=== PATIENT | female | born 2000 | race Two or more races ===

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

== ENCOUNTER 2021-03-15 21:31 | Emergency (ER) | payer OTHER ==
[~2021-03-15] VITALS: Ht 167.6 cm; Wt 109.1 kg
[2021-03-15] MEDS ORDERED: IV NORMAL SALINE 1000ML BAG 1,000 ML IV ONE (22:00)
[2021-03-15] MEDS ORDERED: PROCHLORPERAZINE 10 MG/2 ML VIAL. IV ONE (22:00)
[2021-03-15] MEDS ORDERED: diphenhydrAMINE 50 MG/ML VIAL IVP ONE (22:00)
[2021-03-15] MEDS ORDERED: DEXAMETHASONE SOD PHOS 20 MG/5 ML VIAL. IV ONE (22:00)
[2021-03-15 22:11] LABS: BILIRUBIN,URINE NEGATIVE (NEG); COLOR,URINE YELLOW; NITRITE,URINE NEGATIVE (NEG); PH,URINE 7.5 (<5.0-8.0); PROTEIN,URINE NEGATIVE (NEG-TRACE)
[2021-03-15 22:16] LABS: CLARITY,URINE CLOUDY
[2021-03-15 22:17] LABS: AMORPHOUS SEDIMENT,UR PRESENT /HPF; BACTERIA,URINE FEW /HPF (0-FEW); RBC,URINE 0 /HPF (0-2)
[2021-03-15 22:18] LABS: WBC,URINE RARE /HPF (0-4)
[2021-03-15] MEDS ORDERED: BUTA1TAB23 PO (23:05)
--- NOTE | 2021-03-15 23:06 | ED.ADGEN ---
Past Medical History Past Medical History: No Pertinent History Additional Past Medical Histor: seasonal allergies Past Surgical History: Appendectomy Smoking Status: Never Smoker Alcohol Use: Occasionally Drug Use: None General Adult EDM: Chief Complaint: MULTIPLE COMPLAINTS HPI: HPI: Patient is a 20 year old female who presents emergency department with complaints of a headache since yesterday. Patient states she has been taking Tylenol and ibuprofen with little relief of her symptoms. She states that she feels lightheaded, nauseated, and that light hurts her eyes ever since the headache. She denies any vertigo, difficulty with coordination, weakness, fever, body aches, vomiting, diarrhea, chest pain, palpitations, shortness of breath, abdominal pain, or fatigue. She currently rates pain a 7 out of 10 on the pain scale, she denies any alleviating factors. Patient denies any recent head injury. Review of Systems: Review of Systems: Complete ROS is negative unless otherwise noted in HPI. Current Medications: Current Medications Medications (Trade) Dose Ordered Sig/Wei Start Time Stop Time Status Last Admin Dose Admin Dexamethasone Sodium Phosphate (Decadron) 10 mg 1X ONCE 03/15/21 22:00 03/15/21 22:01 DC 03/15/21 22:22 10 MG Diphenhydramine HCl (Benadryl) 25 mg 1X ONCE 03/15/21 22:00 03/15/21 22:01 DC 03/15/21 22:22 25 MG Prochlorperazine Edisylate (Compazine) 10 mg 1X ONCE 03/15/21 22:00 03/15/21 22:01 DC 03/15/21 22:22 10 MG Sodium Chloride 1,000 ml @ 1,000 mls/hr 1X ONCE 03/15/21 22:00 03/15/21 22:59 DC 03/15/21 22:22 1,000 MLS/HR Allergies: Allergies: Allergies Coded Allergies Type Severity Reaction Last Updated Verified No Known Drug Allergies 06/15/17 No Physical Exam: PE: See Above Constitutional: Well developed, well nourished, no acute distress, non-toxic appearance, obese. [] HENT: Normocephalic, atraumatic, bilateral external ears normal, nose normal. [] Eyes: PERRLA, EOMI, conjunctiva normal, no discharge, no nystagmus. [] Neck: Normal range of motion, no stridor. [] Cardiovascular:Heart rate regular rhythm Lungs & Thorax: Respirations even and unlabored, no retractions, no respiratory distress Skin: Warm, dry, no erythema, no rash. [] Extremities: No cyanosis, ROM intact, no edema. [] Neurologic: Alert and oriented X 3, normal motor, normal sensory, no focal deficits noted. [] Psychologic: Affect normal, judgement normal, mood normal. [] Current Patient Data: Labs: Laboratory Tests Test 03/15/21 21:55 03/15/21 22:06 Urine Collection Type Unknown Urine Color Yellow Urine Clarity Cloudy Urine pH 7.5 (<5.0-8.0) Urine Specific [place] 1.025 (1.000-1.030) Urine Protein Negative mg/dL (NEG-TRACE) Urine Glucose (UA) Negative mg/dL (NEG) Urine Ketones (Stick) Negative mg/dL (NEG) Urine Blood Negative (NEG) Urine Nitrite Negative (NEG) Urine Bilirubin Negative (NEG) Urine Urobilinogen Dipstick 1.0 mg/dL (0.2 mg/dL) Urine Leukocyte Esterase Negative (NEG) Urine RBC 0 /HPF (0-2) Urine WBC Rare /HPF (0-4) Urine Squamous Epithelial Cells Mod /LPF Urine Amorphous Sediment Present /HPF Urine Bacteria Few /HPF (0-FEW) POC Urine HCG, Qualitative Hcg negative (Negative) Vital Signs: Vital Signs Date Time Temp Pulse Resp B/P (MAP) Pulse Ox O2 Delivery O2 Flow Rate FiO2 03/15/21 21:37 98.3 87 18 133/61 (85) 99 Room Air 98.3 EKG: EKG: [] Heart Score: C/O Chest Pain: No Risk Scores: Score 0 - 3: 2.5% MACE over next 6 weeks - Discharge Home Score 4 - 6: 20.3% MACE over next 6 weeks - Admit for Clinical Observation Score 7 - 10: 72.7% MACE over next 6 weeks - Early Invasive Strategies Radiology/Procedures: Radiology/Procedures: [] Course & Med Decision Making: Course & Med Decision Making Pertinent Labs and Imaging studies reviewed. (See chart for details) 20-year-old female presents emergency department with complaints of a headache for 2 days. Urine is negative, UA is unremarkable. Patient was given a liter normal saline, 10 mg of Compazine, 25 mg of Benadryl, and 10 mg Decadron. She reported that her pain was down to a 1 or 2 out of 10 on the pain scale following medications. Patient states she felt much better. Prescription written for Fioricet. Patient encouraged to follow-up with primary care doctor in the next 1 to 2 days, return to the ER if symptoms worsen or fever develops. Patient verbalized an understanding of home care, medications, follow-up, and return to ED instructions and was in agreement with the plan of care. [] Dragon Disclaimer: Dragon Disclaimer: This electronic medical record was generated, in whole or in part, using a voice recognition dictation system. Departure Departure Impression: Primary Impression: Headache around the eyes Disposition: 01 HOME / SELF CARE / HOMELESS Condition: IMPROVED Referrals: BONNY BROWN MD (PCP) Patient Instructions: General Headache Without Cause, [id number] Additional Instructions: Fill the prescription and take it as directed. Go home and rest in a cool, dark, quiet room. Limit screen exposure. Follow-up with your primary care doct or in the next 1 to 2 days, return to the ER if symptoms worsen or fever develops. Scripts Butalb/Acetaminophen/Caffeine ([id number] [id number]) 1 Each Tablet 1-2 EACH PO Q4HRS PRN for PAIN MDD 6 tabs for 3 Days, #18 TAB 0 Refills Prov: HERMAN ALBARRAN APRN 03/15/21 HERMAN ALBARRAN APRN March 15, 2021 23:06
[2021-03-15 23:17] VITALS: BP 128/75
== END 2021-03-15 23:18 | disposition home or self-care (01) ==
LOC: ER 21:31
DX: R51.9 Headache, unspecified (principal); R42 Dizziness and giddiness; R11.0 Nausea; Z90.89 Acquired absence of other organs
CPT/HCPCS: 81001; 81025; 96361; 96374; 96375; 99285; J0780; J1100; J1200; J7030

== ENCOUNTER 2021-03-17 12:12 | Emergency (ER) | payer OTHER ==
[~2021-03-17] VITALS: Ht 172.7 cm; Wt 100.0 kg
[~2021-03-17 12:12] MED LIST changes: +BUTA1TAB23 PO
--- NOTE | 2021-03-17 12:25 | ED.ADGEN ---
Past Medical History Past Medical History: No Pertinent History Additional Past Medical Histor: seasonal allergies Past Surgical History: Appendectomy Smoking Status: Never Smoker Alcohol Use: Occasionally Drug Use: None General Adult EDM: Chief Complaint: HEADACHE HPI: HPI: Patient is a 20-year-old female who arrives with her mother to the emergency department complaining of headache that is now his third day. Patient was evaluated in the emergency department here 2 days previously and provided medication in the ER as well as a prescription. Despite this the patient has had continued pain. Patient describes her pain is in the front of the head and migrates to the top of her head. Patient also describes being sensitive to light and nauseated as well. Patient is perplexed by this because she does not have a history of headaches. She further denies any history of illness such as fever and does not have any history of a traumatic injury. She further denies any neurological changes otherwise. She is awake, alert and uncomfortable appearing. Review of Systems: Review of Systems: Constitutional: Denies fever or chills. [] Eyes: Reports light sensitivity. Denies change in visual acuity. [] HENT: Denies nasal congestion or sore throat. [] Respiratory: Denies cough or shortness of breath. [] Cardiovascular: Denies chest pain or edema. [] GI: Reports nausea. Denies abdominal pain, vomiting, bloody stools or diarrhea. [] : Denies dysuria. [] Musculoskeletal: Denies back pain or joint pain. [] Integument: Denies rash. [] Neurologic: Reports headache. Denies focal weakness or sensory changes. [] Endocrine: Denies polyuria or polydipsia. [] Lymphatic: Denies swollen glands. [] Psychiatric: Denies depression or anxiety. [] Current Medications: Current Medications Medications (Trade) Dose Ordered Sig/Wei Start Time Stop Time Status Last Admin Dose Admin Diphenhydramine HCl (Benadryl) 50 mg 1X ONCE 03/17/21 12:30 03/17/21 12:36 DC 03/17/21 13:01 50 MG Ketorolac Tromethamine (Toradol 30mg Vial) 30 mg 1X ONCE 03/17/21 12:30 03/17/21 12:36 DC 03/17/21 13:01 30 MG Lorazepam (Ativan Inj) 1 mg 1X ONCE 03/17/21 12:30 03/17/21 12:36 DC 03/17/21 13:01 1 MG Metoclopramide HCl (Reglan Vial) 10 mg 1X ONCE 03/17/21 12:30 03/17/21 12:36 DC 03/17/21 13:00 10 MG Sodium Chloride 1,000 ml @ 1,000 mls/hr 1X ONCE 03/17/21 12:30 03/17/21 13:29 DC 03/17/21 13:02 1,000 MLS/HR Allergies: Allergies: Allergies Coded Allergies Type Severity Reaction Last Updated Verified No Known Drug Allergies 06/15/17 No Physical Exam: PE: Constitutional: Uncomfortable appearing. Well developed, well nourished, non- toxic appearance. [] HENT: Normocephalic, atraumatic, bilateral external ears normal, oropharynx moist, no oral exudates, nose normal. [] Eyes: PERRLA, EOMI, conjunctiva normal, no discharge. [] Neck: Normal range of motion, no tenderness, supple, no stridor. [] Cardiovascular:Heart rate regular rhythm, no murmur [] Lungs & Thorax: Bilateral breath sounds clear to auscultation [] Abdomen: Bowel sounds normal, soft, no tenderness, no masses, no pulsatile masses. [] Skin: Warm, dry, no erythema, no rash. [] Back: No tenderness, no CVA tenderness. [] Extremities: No tenderness, no cyanosis, no clubbing, ROM intact, no edema. [] Neurologic: Alert and oriented X 3, normal motor function, normal sensory function, no focal deficits noted. [] Psychologic: Affect normal, judgement normal, mood normal. [] Current Patient Data: Vital Signs: Vital Signs Date Time Temp Pulse Resp B/P (MAP) Pulse Ox O2 Delivery O2 Flow Rate FiO2 03/17/21 12:30 98.6 91 20 153/78 (103) 98 Room Air 98.6 EKG: EKG: [] Heart Score: C/O Chest Pain: No Risk Factors: Risk Factors: DM, Current or recent (<one month) smoker, HTN, HLP, family history of CAD, obesity. Risk Scores: Score 0 - 3: 2.5% MACE over next 6 weeks - Discharge Home Score 4 - 6: 20.3% MACE over next 6 weeks - Admit for Clinical Observation Score 7 - 10: 72.7% MACE over next 6 weeks - Early Invasive Strategies Radiology/Procedures: Radiology/Procedures: [] Impression: [facility] [address] [place] [address] IMAGING REPORT Signed PATIENT: DAVID MCCOLLUM ACCOUNT: [id number] : 2000 LOCATION: ER AGE: 20 SEX: F EXAM STATUS: REG ER ORD. PHYSICIAN: LOGAN CR DO REASON: HEADACHE PROCEDURE: CT HEAD WO CONTRAST INDICATION: Reason: HEADACHE / Spl. Instructions: / History: COMPARISON: None. TECHNIQUE: Axial CT images obtained through the head without intravenous contrast. One or more of the following individualized dose reduction techniques were utilized for this examination: 1. Automated exposure control; 2. Adjustment of the mA and/or kV according to patient size; 3. Use of iterative reconstruction technique. FINDINGS: No intracranial hemorrhage. No midline shift. Basal cisterns patent. Ventricles and sulci are unremarkable. No acute osseous abnormality. Orbits and paranasal sinuses unremarkable. IMPRESSION: * No acute intracranial hemorrhage. Electronically signed by: Chicho Arellano MD (03/17/2021 12:59 PM) [id number] DICTATED and SIGNED BY: CHICHO ARELLANO MD DATE: 03/17/21 [id number] 0 Course & Med Decision Making: Course & Med Decision Making Pertinent Labs and Imaging studies reviewed. (See chart for details) [] The patient is resting comfortably now and states her headache is subsided. I have advised that she go home and rest and take lots of fluids and over the next 24 hours. Should she have return of her headache I advised that she consider contacting her primary care physician or a neurologist with respect to possible migraine management. Should the patient develop a fever with this headache or any neck involvement I advised her to return. Have also advised to return with any neurological changes such as motor or sensory change. Both she and her mother are understanding of this and have agreed to return as needed. The patient was tested for coronavirus while she was here and I advised that she maintain quarantine precautions until that test is returned. She is nontoxic- appearing and breathing comfortably. She is neurologically intact and stable for discharge. Dragon Disclaimer: Dragon Disclaimer: This electronic medical record was generated, in whole or in part, using a voice recognition dictation system. Departure Departure Impression: Primary Impression: Headache around the eyes Additional Impression: Person under investigation for COVID-19 Disposition: 01 HOME / SELF CARE / HOMELESS Condition: IMPROVED Referrals: BONNY BROWN MD (PCP) Patient Instructions: General Headache Without Cause Problem Qualifiers LOGAN CR DO Mar 17, 2021 12:25
[2021-03-17 12:30] VITALS: BP 153/78
[2021-03-17] MEDS ORDERED: diphenhydrAMINE 50 MG/ML VIAL IVP ONE (12:30)
[2021-03-17] MEDS ORDERED: METOCLOPRAMIDE HCL 10 MG/2 ML VIAL. IVP ONE (12:30)
[2021-03-17] MEDS ORDERED: KETOROLAC 30 MG/ML VIAL. IVP ONE (12:30)
[2021-03-17] MEDS ORDERED: IV NORMAL SALINE 1000ML BAG 1,000 ML IV ONE (12:30)
--- NOTE | 2021-03-17 13:02 | RAD ---
INDICATION: Reason: HEADACHE / Spl. Instructions: / History: COMPARISON: None. TECHNIQUE: Axial CT images obtained through the head without intravenous contrast. One or more of the following individualized dose reduction techniques were utilized for this examinat ion: 1. Automated exposure control; 2. Adjustment of the mA and/or kV according to patient size; 3 . Use of iterative reconstruction technique. FINDINGS: No intracranial hemorrhage. No midline shift. Basal cisterns patent. Ventricles and sulci are unremarkable. No acute osseous abnormality. Orbits and paranasal sinuses unremarkable. IMPRESSION: * No acute intracranial hemorrhage. Electronically signed by: Nate Epps MD (03/17/2021 12:59 PM) [id number]
--- NOTE | 2021-03-19 09:17 | NUR ---
IP: Attempted to contact pt concerning covid test. Phone number provided is not in service.
== END 2021-03-17 14:25 | disposition home or self-care (01) ==
LOC: ER 12:12
DX: R51.9 Headache, unspecified (principal); Z20.822 Contact with and (suspected) exposure to COVID-19; R11.0 Nausea
CPT/HCPCS: 70450; 96361; 96374; 96375; 99284; J1200; J1885; J2060; J2765; J7030; U0003; U0005